=== PATIENT | female | born 1945 | race Caucasian/White ===

== ENCOUNTER → 2018-09-15 | Outpatient (CLI) | payer MEDICARE ==
[~2018-09-15] MED LIST: REGADENOSON 0.4 MG/5 ML DISP.SYRIN. IV ONE
--- NOTE | 2018-09-15 12:09 | PCVCIMAG ---
APPROVED REPORT Imaging Protocol: Rest Tc-99m/Stress Tc-99m 1 day Study performed: 09/15/2018 10:03:53 Indication: Chest pain, Dyspnea, Palpitations Patient Location: Out-Patient Stress Nurse: Mary Hinton RN, Shawna Taylor RN [place] Tech:Raúl Spencer NMTCB Ht: 5 ft 3 in Wt: 150 lbs BSA: 1.71 m2 HR: 84 bpm BP: 110/73 mmHg BMI: 26.56 Rhythm: Sinus Rhythm, PVC's Medical History Medical History: Age, Hyperlipidemia, Former Smoker Medications: No cardiac meds Allergies: Flagyl Pretest Chest Pain Characteristics: No chest pain Exercise History: Physically active Resting Data Rest SPECT myocardial perfusion imaging was performed in supine position 45 minutes following the intravenous injection of 11.5 mCi of Tc-99m Sestamibi. Time of rest injection: 914 Date: 09/15/2018 Administration Route: IV Administration Site: Right AC Pharmacologic Stress Pharmacologic stress test was performed by injecting Regadenoson 0.4 mg IV push over 10-15 seconds immediately followed by the intravenous injection of 33.5 mCi of Tc-99m Sestamibi. Time of stress injection: 1045 Date: 09/15/2018 Administration Route: IV Administration Site: Right AC Gated Stress SPECT was performed 45 minutes after stress injection. The images were gated to evaluate regional wall motion and calculate left ventricular ejection fraction. Stress Test Details Stress Test: Exercise stress testing was performed using a Moe protocol. HRMax Heart Rate (APMHR): 148 bpm Resting HR: 84 bpmTarget HR (85% APMHR): 125 bpm Max HR Achieved: 162 bpm % of APMHR: 109 Recovery HR: 90 bpm BP Resting BP: 110/73 mmHg Max BP: 144/70 mmHg Recovery BP: 138/68 mmHg ECG Resting ECG: Sinus Rhythm Stress ECG: Sinus Tachycardia ST Change: Non-ischemic Arrhythmia: PVC's Recovery ECG: Sinus Rhythm Clinical Reason for Termination: Fatigue Stress Symptoms: Dyspnea Exercise duration: 7 min 01 sec Exercise capacity: 10.10 METs Overall Exercise Capacity for Age: Good Symptoms resolved during recovery. Study Quality Study: Good Artifact: Mild Breast artifact Study Data Post stress, the left ventricular ejection was 72%.. SSS: 2 SRS: 1 SDS: 2 TID = 0.91. Perfusion There is a small area of mildly reduced uptake in the apical segment of the anterior wall which is seen on the stress images as well as the resting images. This area thickens and moves normally and is most consistent with attenuation artifact. Wall Motion Normal left ventricular wall motion. Nuclear Conclusion ECG Findings: negative for ischemia Clinical Findings: negative for ischemia Nuclear Findings: negative for ischemia Exercise Capacity: normal Left Ventricular Function: normal Risk Study: low This study is of low probability for inducible ischemia or prior infarct. Normal global and segmental LV systolic function. Artifact: Mild Breast artifact
--- NOTE | 2018-09-15 12:42 | PCVCIMAG ---
APPROVED REPORT Study performed: 09/15/2018 09:18:48 EXAM: Comprehensive 2D, Doppler, and color-flow Echocardiogram Patient Location: Echo lab Room #: [id number]: routine BSA: 1.71 HR: 61 bpmBP: 140/78 mmHg Rhythm: sinus arrhythmia Other Information Study Quality: Good Risk Factors: Cardiac Risk Factors: Hyperlipidemia,ALBA,edema Indications Dyspnea Palpitations Chest Pain 2D Dimensions IVSd: 7.46 (7-11mm)LVOT Diam: 21.18 (18-24mm) LVDd: 47.28 mm PWd: 5.80 (7-11mm)Ascending Ao: 27.89 (22-36mm) LVDs: 26.29 (25-40mm) Left Atrium: 36.52 (27-40mm) Aortic Root: 24.44 mm LV Single Plane 4CH: 58.22 % LV Single Plane 2CH: 65.48 % Biplane EF: 63.5 % Volumes Left Atrial Volume (Systole) Single Plane 4CH: 59.85 mLSingle Plane 2CH: 54.94 mL Biplane LA Volume: 58.00 mLLA ESV Index: 34.00 mL/m2 Aortic Valve AoV Peak Solis.: 1.32 m/s AO Peak Gr.: 6.94 mmHgLVOT Max P.12 mmHg LVOT Max V: 0.88 m/s MOLLY Vmax: 2.36 cm2 Mitral Valve E/A Ratio: 1.5 MV Decel. Time: 247.37 ms MV E Max Solis.: 0.62 m/s MV A Solis.: 0.41 m/s MV PHT: 71.74 ms IVRT: 103.81 ms TDI E/Lateral E': 8.86E/Medial E': 7.75 Medial E' Solis.: 0.08 m/s Lateral E' Solis.: 0.07 m/s Pulmonary Valve PV Peak Solis.: 0.73 m/sPV Peak Gr.: 2.13 mmHg Pulmonary Vein P Vein S: 0.46 m/sP Vein A: 0.33 m/s P Vein D: 0.42 m/sP Vein A Dur.: 83.0 msec P Vein S/D Ratio: 1.10 Tricuspid Valve TR Peak Solis.: 2.43 m/s TR Peak Gr.: 23.71 mmHg TV Vmax: 0.47 m/sPA Pressure: 31.00 mmHg Left Ventricle The left ventricle is normal size. There is normal LV segmental wall motion. There is normal left ventricular wall thickness. Left ventricular systolic function is normal. The left ventricular ejection fraction is within the normal range. LVEF is 60-65%. Grade II - pseudonormal filling dynamics. Right Ventricle The right ventricle is normal size. The right ventricular systolic function is normal. Atria Left atrium is mildly dilated. Right atrium is mildly dilated. Aortic Valve Aortic valve is trileaflet. The aortic valve is normal in structure and function. No aortic regurgitation is present. There is no aortic valvular stenosis. Mitral Valve The mitral valve is normal in structure. Mild mitral regurgitation. No evidence of mitral valve stenosis. Tricuspid Valve The tricuspid valve is normal in structure. Mild tricuspid regurgitation. Pulmonic Valve The pulmonary valve is normal in structure. Mild pulmonic regurgitation. Great Vessels The aortic root is normal in size. The ascending aorta is normal in size. Aortic arch is normal in caliber. IVC is normal in size and collapses >50% with inspiration. Pericardium There is no pericardial effusion. There is no pleural effusion. <Conclusion> The left ventricle is normal size. There is normal left ventricular wall thickness. Left ventricular systolic function is normal. The right ventricle is normal size. Left atrium is mildly dilated. Right atrium is mildly dilated. Grade II - pseudonormal filling dynamics. The aortic valve is normal in structure and function. Mild mitral regurgitation. Mild tricuspid regurgitation.
== END | disposition home or self-care (01) ==
LOC: PCVCIMAG 12:15
PROVIDERS: ATTEND Internal Medicine Cardiovascular Disease
DX: I08.1 Rheumatic disorders of both mitral and tricuspid valves (principal); R00.2 Palpitations; R07.9 Chest pain, unspecified; R06.09 Other forms of dyspnea; R60.9 Edema, unspecified; E78.5 Hyperlipidemia, unspecified; E03.9 Hypothyroidism, unspecified; Z87.891 Personal history of nicotine dependence
CPT/HCPCS: 78452; 93017; 93306; A9500; G0463; J2785